=== PATIENT | female | born 1980 | race Caucasian/White ===

== ENCOUNTER 2021-02-19 01:41 | Emergency (ER) | payer OTHER ==
[2021-02-19 02:07] LABS: BASOPHIL 0.8 % (0-2); EOSINOPHIL 1.5 % (0-5); HGB 13.7 g/dl (12.5-16.0); LYMPHOCYTE 35.5 % (15-48); MCH 29.3 pg (25.0-31.0); MCHC 33.4 g/dL (32.0-36.0); MCV 87.8 fL (78.0-100.0); MONOCYTE 7.8 % (0-12); MPV 9.5 fL (6.0-9.5); NEUTROPHIL 54.1 % (41-80); NRBC 0; PLT 240 K/uL (150-400); RBC 4.67 M/uL (4.20-5.40); RDW 12.9 % (11.5-14.0); WBC 6.6 K/uL (4.0-10.5)
[2021-02-19 02:20] LABS: INR 0.99 (0.9-1.2); PROTHROMBIN TIME 12.5 SECONDS (11.8-13.4); PTT 28.2 SECONDS (24.4-34.7)
[2021-02-19] MEDS ORDERED: EFFEXOR-XR 75 M75 MG PO (02:24)
[2021-02-19 02:36] LABS: ALBUMIN 3.9 g/dL (3.4-5.0); BILIRUBIN - TOTAL 0.3 mg/dL (0.2-1.0); CREATININE 0.83 mg/dL (0.51-0.95); GLOBULIN (CALCULATION) 3.7 g/dL; POTASSIUM 3.3 mmol/L (3.5-5.1); TOTAL PROTEIN 7.6 g/dL (6.4-8.2)
[2021-02-19 02:41] LABS: LACTIC ACID 1.3 mmol/L (0.4-1.9)
== END 2021-02-19 05:38 | disposition home or self-care (01) ==
LOC: FER 01:41
PROVIDERS: Emergency Medicine Emergency Medical Services
DX: R07.89 Other chest pain (principal); M79.602 Pain in left arm; R00.0 Tachycardia, unspecified; F17.290 Nicotine dependence, other tobacco product, uncomplicated
CPT/HCPCS: 36415; 71045; 80053; 83605; 84484; 85025; 85610; 85730; 93005